=== PATIENT | male | born 1995 | race Caucasian/White ===

== ENCOUNTER 2024-10-01 14:42 | Emergency (ER) | payer OTHER ==
[2024-10-01] MEDS ORDERED: KETOROLAC 30 MG/ML INJ ONE (15:28)
[2024-10-01 15:39] LABS: Absolute Lymphocytes (CBC) 1.2 K/uL (0.7-4.9); Absolute Monocytes 1.2 K/uL (0.1-1.3); Absolute Neutrophil 8.1 K/uL (1.8-8.0); Basophils % 0.3 % (0-1.3); Eosinophils % 0.1 % (0-4.4); Hematocrit 39.6 % (39.6-49.0); Hemoglobin 13.5 g/dL (13.6-17.9); Lymphocytes % 11.4 % (15.3-44.8); MCH 30.8 pg (27.0-35.0); MCV 90.7 fL (80-100); MPV 6.7 fL (7.6-11.3); Monocytes % 11.2 % (3.3-12.3); Platelets 309 thou/uL (152-406); RBC Red Blood Cell Count 4.36 M/uL (4.33-5.43); Red Cell Distribution Width 12.9 % (12.1-15.2)
[2024-10-01 15:43] LABS: PT Prothrombin Time 12.7 SECONDS (9.4-12.5); Protime INR 1.21
--- NOTE | 2024-10-01 15:54 | RAD REPORT ---
EXAM: Chest Single View HISTORY: CHEST PAIN COMPARISON: 06/11/2008 FINDINGS: LUNGS/PLEURA: The lungs are clear. No pleural effusions or pneumothorax. No pulmonary edema. MEDIASTINUM: The mediastinal silhouette is within normal limits. CARDIAC: Cardiac silhouette accentuated by portable technique and low lung volumes. UPPER ABDOMEN: No significant abnormality. BONES: No acute abnormality. LINES/TUBES/OTHER: N/A IMPRESSION: No evidence of acute cardiopulmonary disease.
[2024-10-01 15:59] LABS: Albumin 3.5 g/dL (3.4-5.0); Albumin/Globulin Ratio 0.9 (1.1-1.8); Anion Gap 11.3 mEq/L (5.0-15.0); Bilirubin Direct 0.3 mg/dL (0-0.2); Bilirubin Total 1.3 mg/dL (0.2-1.0); Globulin 3.7 g/dL (2.3-3.5); Magnesium 2.1 mg/dL (1.6-2.4); Potassium 3.3 mEq/L (3.5-5.1); Protein, Total 7.2 g/dL (6.4-8.2); Troponin High Sensitivity 3.5 pg/mL (<58.9)
--- NOTE | 2024-10-01 17:18 | RAD REPORT ---
Abdomen Exam Limited: 10/01/2024 4:50 PM CLINICAL HISTORY: elevated bilirubin STUDY: Limited right upper quadrant ultrasound of abdomen. COMPARISON: None. FINDINGS: Liver: Hepatic steatosis. Bile ducts: No intrahepatic or extrahepatic biliary ductal dilatation. Common bile duct measures 3 mm. Gallbladder: The gallbladder is underdistended. No gallbladder wall thickening. Negative for cholelit hiasis. No sonographic Alvarez sign. IMPRESSION: No acute cholecystitis, biliary duct dilatation, or cholelithiasis. Hepatic steatosis.
[2024-10-01] MEDS ORDERED: NA CHLORIDE 0.9% 1,000 ML ONE (17:35)
--- NOTE | 2024-10-01 18:20 | ER ---
Nurse's Notes [facility] Name: Domingo Zhao Age: 29 yrs Sex: Male : 1995 Arrival Date: 10/01/2024 Time: 14:42 Bed 14 Private MD: Diagnosis: Chest pain, unspecified Presentation: 10/01 14:47 Chief complaint: Patient states: CHEST PAIN AND COUGH SINCE LAST PM. Coronavirus bp screen: At this time, the client does not indicate any symptoms associated with coronavirus-19. Ebola Screen: No symptoms or risks identified at this time. Initial Sepsis Screen: Does the patient meet any 2 criteria? No. Patient's initial sepsis screen is negative. Does the patient have a suspected source of infection? No. Patient's initial sepsis screen is negative. Risk Assessment: Do you want to hurt yourself or someone else? Patient reports no desire to harm self or others. Onset of symptoms was September 30, 2024 at 21:00. 14:47 Method Of Arrival: Ambulatory bp 14:47 Acuity: BERYL 3 bp Triage Assessment: 14:49 General: Appears in no apparent distress. Behavior is calm, cooperative. Pain: bp Complains of pain in chest. EENT: No deficits noted. Neuro: No deficits noted. Cardiovascular: Reports chest pain. Respiratory: No deficits noted. GI: No signs and/or symptoms were reported involving the gastrointestinal system. : No signs and/or symptoms were reported regarding the genitourinary system. Derm: No deficits noted. Musculoskeletal: No deficits noted. Historical: - Allergies: 14:49 No Known Allergies; bp - Home Meds: 14:49 Prozac Oral [Active]; Wellbutrin Oral [Active]; bp - Immunization history:: Adult Immunizations up to date. - Infectious Disease History:: Denies. - Social history:: Smoking status: Patient denies any tobacco usage or history of. Screenin:46 [facility] ED Fall Risk Assessment (Adult) History of falling in the last 3 months, ph including since admission No falls in past 3 months (0 pts) Confusion or Disorientation No (0 pts) Intoxicated or Sedated No (0 pts) Impaired Gait No (0 pts) Mobility Assist Device Used No (0 pt) Altered Elimination No (0 pt) Score/Fall Risk Level 0 - 2 = Low Risk Oriented to surroundings, Maintained a safe environment, Hourly rounding (assess needs \T\ fall precautionary measures) done. Abuse screen: Denies threats or abuse. Denies injuries from another. Nutritional screening: No deficits noted. Tuberculosis screening: No symptoms or risk factors identified. Assessment: 17:45 General: Appears in no apparent distress. comfortable, well groomed, Behavior is calm, ph cooperative, appropriate for age. Pain: Complains of pain in anterior aspect of left upper chest and left breast, denies pain at this time Pain does not radiate. Vital Signs: 14:47 BP 111 / 74; Pulse 116; Resp 16; Temp 97.5; Pulse Ox 100% ; bp 17:44 BP 115 / 70; Pulse 98; Resp 18; Temp 98; Pulse Ox 99% on R/A; ph 18:34 BP 112 / 72; Pulse 87; Resp 18; Temp 97.9; Pulse Ox 98% on R/A; ph ED Course: 14:43 Patient arrived in ED. ra3 14:47 Bill Gudino PA is PHCP. cp 14:47 Bill Romero MD is Attending Physician. cp 14:49 Triage completed. bp 14:51 Arm band placed on. bp 15:32 Basic Metabolic Panel Sent. em1 15:32 CBC with Diff Sent. em1 15:32 LFT's Sent. em1 15:32 Magnesium Sent. em1 15:32 NT PRO-BNP Sent. em1 15:32 PT-INR Sent. em1 15:32 Troponin HS Sent. em1 15:32 Initial lab(s) drawn, by me, sent to lab. EKG done, by ED staff, reviewed by Bill CAMPBELL. Inserted saline lock: 22 gauge in right forearm, using aseptic technique. Blood collected. Flushed with 10 mL NS. 15:52 XRAY Chest (1 view) In Process Unspecified. EDMS 17:13 US Abdomen Limited: gallbladder In Process Unspecified. EDMS 17:28 Barbara Morrison, RN is Primary Nurse. ph 17:44 Troponin High Sensitivity Sent. ph 17:44 No provider procedures requiring assistance completed. Repeat lab(s) drawn. by me, sent ph to lab. Patient maintains SpO2 saturation greater than 95% on room air. 17:46 Patient has correct armband on for positive identification. Bed in low position. Call ph light in reach. Side rails up X 1. Pulse ox on. NIBP on. Door closed. Noise minimized. 18:34 IV discontinued, intact, bleeding controlled, No redness/swelling at site. Pressure ph dressing applied. Administered Medications: 15:33 Drug: Ketorolac IVP 15 mg IVP once Route: IVP; Site: right forearm; ap3 17:44 Follow up: Response: No adverse reaction ph 17:44 Drug: NS 0.9% IV 1000 ml IV at 1 bolus Per protocol; to be given as a bolus over 60 ph minutes Route: IV; Rate: 1 bolus; Site: right forearm; 18:34 Follow up: Response: No adverse reaction; IV Status: Completed infusion; IV Intake: ph 1000ml Medication: 17:46 VIS not applicable for this client. ph Intake: 18:34 IV: 1000ml; Total: 1000ml. ph Outcome: 18:20 Discharge ordered by MD. cp 18:33 Discharged to home ambulatory, with family, ph 18:33 Condition: good 18:33 Discharge instructions given to family, Instructed on discharge instructions, follow up and referral plans. medication usage, Demonstrated understanding of instructions, follow-up care, medications, Prescriptions given X 1, 18:34 Patient left the ED. ph Signatures: Dispatcher [employer] EDMS Christofer Colon em1 Barbara Morrison RN RN ph Bill Gudino PA PA cp Peltier, Brian RN RN Laurie Lloyd RN RN ap3 Rema, Sophia [email or web address] Corrections: (The following items were deleted from the chart) 17:44 17:44 NS 0.9% IV 1000 ml IV at 1 bolus in right antecubital ph ph
--- NOTE | 2024-10-01 18:21 | EDPHYS ---
Physician Documentation [facility] Name: Domingo Zhao Age: 29 yrs Sex: Male : 1995 Arrival Date: 10/01/2024 Time: 14:42 Bed 14 Private MD: ED Physician Bill Romero HPI: 10/01 15:10 This 29 yrs old Male presents to ER via Ambulatory with complaints of Chest Pain. cp 15:10 The patient or guardian reports chest pain that is located primarily in the anterior cp chest wall, left. The pain radiates to back. Associated signs and symptoms: Pertinent positives: cough, Pertinent negatives: abdominal pain, diaphoresis, lower extremity pain, lower extremity swelling, shortness of breath, vomiting. The chest pain is described as constant. Duration: The patient or guardian reports a single episode, that is still ongoing, and worsening, started last night. Historical: - Allergies: 14:49 No Known Allergies; bp - Home Meds: 14:49 Prozac Oral [Active]; Wellbutrin Oral [Active]; bp - Immunization history:: Adult Immunizations up to date. - Infectious Disease History:: Denies. - Social history:: Smoking status: Patient denies any tobacco usage or history of. ROS: 15:15 Constitutional: Negative for chills, fever, poor PO intake, cp 15:15 Eyes: Negative for injury, pain, redness, and discharge, cp 15:15 ENT: Negative for drainage from ear(s), ear pain, sore throat, difficulty swallowing, difficulty handling secretions, 15:15 Cardiovascular: Positive for chest pain, Negative for edema, palpitations, 15:15 Respiratory: Positive for cough, with no reported sputum, Negative for wheezing, 15:15 Abdomen/GI: Negative for abdominal pain, vomiting, diarrhea, constipation, 15:15 Back: Positive for radiated pain, cp 15:15 Neuro: Negative for altered mental status, dizziness, headache, loss of consciousness, cp syncope, weakness, 15:15 All other systems are negative, Exam: 15:07 ECG was reviewed by the Attending Physician. cp 15:20 Constitutional: The patient appears in no acute distress, alert, awake, cp non-diaphoretic, non-toxic, well developed, well nourished, obese, 15:20 Head/Face: Normocephalic, atraumatic. 15:20 Eyes: Periorbital structures: appear normal, Conjunctiva: normal, no exudate, no injection, Sclera: no appreciated abnormality, Lids and lashes: appear normal, bilaterally, 15:20 ENT: External ear(s): are unremarkable, Nose: is normal, Mouth: Lips: moist, Oral mucosa: moist, Posterior pharynx: Airway: no evidence of obstruction, patent, 15:20 Chest/axilla: Inspection: normal, Palpation: crepitus, is not appreciated, tenderness, that is mild, of the left clavicle, anterior aspect of left upper chest and mid-sternal area, 15:20 Cardiovascular: Rate: tachycardic, Rhythm: regular, Edema: is not appreciated, JVD: is not appreciated, 15:20 Respiratory: the patient does not display signs of respiratory distress, Respirations: normal, no use of accessory muscles, no retractions, labored breathing, is not present, Breath sounds: are clear throughout, no decreased breath sounds, no stridor, no wheezing, 15:20 Abdomen/GI: Inspection: abdomen appears normal, Bowel sounds: active, all quadrants, Palpation: abdomen is soft and non-tender, in all quadrants, Vital Signs: 14:47 BP 111 / 74; Pulse 116; Resp 16; Temp 97.5; Pulse Ox 100% ; bp 17:44 BP 115 / 70; Pulse 98; Resp 18; Temp 98; Pulse Ox 99% on R/A; ph 18:34 BP 112 / 72; Pulse 87; Resp 18; Temp 97.9; Pulse Ox 98% on R/A; ph MDM: 14:47 Medical Screening Exam initiated cp 16:00 Differential diagnosis: abnormal EKG, acute myocardial infarction, acute pericarditis, cp anxiety, cholecystitis, Cholelithiasis pericarditis, pleurisy, pneumonia, pneumothorax, pulmonary embolus. 18:20 Data reviewed: vital signs, nurses notes, lab test result(s), EKG, radiologic studies, cp plain films. 18:20 I considered the following discharge prescriptions or medication management in the emergency department Medications were administered in the Emergency Department. See MAR. 18:20 Counseling: I had a detailed discussion with the patient and/or guardian regarding the historical points, exam findings, and any diagnostic results supporting the discharge/admit diagnosis, lab results, radiology results. 18:20 Historians other than the Patient: Parent: mother provides hpi. Response to treatment: cp the patient's symptoms have mildly improved after treatment, and as a result, I will discharge patient. Special discussion: Based on the patient's history, exam, and Dx evaluation, there is no indication for emergent intervention or inpatient Tx. It is understood by the patient/guardian that if the Sx's persist or worsen they need to return immediately for re-evaluation. 10/01 15:09 Order name: Basic Metabolic Panel; Complete Time: 16:34 cp 10/01 16:34 Interpretation: Normal except: K 3.3; GFR 87. cp 10/01 15:09 Order name: CBC with Diff; Complete Time: 16:34 cp 10/01 16:35 Interpretation: Normal except: HGB 13.5; MPV 6.7; PILAR% 77.0; LYM% 11.4; NEUT A 8.1. cp 10/01 15:09 Order name: LFT's; Complete Time: 16:34 cp 10/01 16:35 Interpretation: Normal except: BILIT 1.3; BILID 0.3; IBILI, CALC 1.0; GLOB 3.7; A/G 0.9.cp 10/01 15:09 Order name: Magnesium; Complete Time: 16:34 cp 10/01 15:09 Order name: NT PRO-BNP; Complete Time: 16:34 cp 10/01 15:09 Order name: PT-INR; Complete Time: 16:34 cp 10/01 15:09 Order name: Troponin HS; Complete Time: 16:34 cp 10/01 17:06 Order name: Troponin High Sensitivity; Complete Time: 18:20 cp 10/01 15:09 Order name: XRAY Chest (1 view); Complete Time: 16:34 cp 10/01 16:36 Order name: US Abdomen Limited: gallbladder; Complete Time: 17:21 cp 10/01 17:21 Interpretation: Report reviewed. 10/01 15:09 Order name: EKG - Nurse/Tech; Complete Time: 15:21 cp 10/01 15:09 Order name: IV Saline Lock; Complete Time: 15:32 cp 10/01 15:09 Order name: Labs collected and sent; Complete Time: 15:32 cp 10/01 15:09 Order name: O2 Per Protocol; Complete Time: 15:21 cp 10/01 15:09 Order name: O2 Sat Monitoring; Complete Time: 15:21 cp EC:07 Rate is 110 beats/min. Rhythm is regular. LA interval is normal. QRS interval is cp prolonged at 102 msec. QT interval is normal. T waves are Inverted in lead aVR. Interpreted by me. Reviewed by me. Administered Medications: 15:33 Drug: Ketorolac IVP 15 mg IVP once Route: IVP; Site: right forearm; ap3 17:44 Follow up: Response: No adverse reaction ph 17:44 Drug: NS 0.9% IV 1000 ml IV at 1 bolus Per protocol; to be given as a bolus over 60 ph minutes Route: IV; Rate: 1 bolus; Site: right forearm; 18:34 Follow up: Response: No adverse reaction; IV Status: Completed infusion; IV Intake: ph 1000ml Disposition Summary: 10/01/24 18:20 Discharge Ordered Notes: Location: Home cp Problem: new cp Symptoms: have improved cp Condition: Stable cp Diagnosis - Chest pain, unspecified cp Followup: cp - With: Private Physician - When: 2 - 3 days - Reason: Recheck today's complaints Discharge Instructions: - Discharge Summary Sheet cp - Nonspecific Chest Pain, Adult cp Forms: - Medication Reconciliation Form cp - Antibiotic Education cp - Prescription Opioid Use cp - Patient Portal Instructions cp - Leadership Thank You Letter cp Prescriptions: - Anaprox DS 550 mg Oral Tablet - take 1 tablet ORAL route every 12 hours As needed; 20 tablet; Refills: 0, cp Product Selection Permitted Addendum: 10/05/2024 07:27 Co-signature as Attending Physician, Bill Romero MD I agree with the assessment and c michael plan of care. Signatures: Dispatcher [employer] Bill Robbins MD MD cha Hall, Patricia RN RN Bill Miller PA PA cp Peltier, Brian, RN RN Laurie Lloyd RN RN ap3 Corrections: (The following items were deleted from the chart) 10/01 15:09 15:09 BASIC METABOLIC PANEL+C.LAB.BRZ ordered. EDMS EDMS 15:09 15:09 CBC+H.LAB.BRZ ordered. EDMS EDMS 15:09 15:09 HEPATIC FUNCTION+C.LAB.BRZ ordered. EDMS EDMS 15: 15:09 MAGNESIUM+C.LAB.BRZ ordered. EDMS EDMS 15: 15:09 PROBNP+C.LAB.BRZ ordered. EDMS EDMS 15: 15:09 PROTIME (+INR)+COAG.LAB.BRZ ordered. EDMS EDMS 15: 15:09 Troponin High Sensitivity+C.LAB.BRZ ordered. EDMS EDMS 15: 15:09 Urinalysis W/Microscopic+U.LAB.BRZ ordered. EDMS EDMS 15: 15:09 URINE DRUG SCREEN+UC.LAB.BRZ ordered. EDMS EDMS 15: 15:09 Chest Single View+RAD.RAD.BRZ ordered. EDMS EDMS
[2024-10-01 19:09] VITALS: BP 112/72; TEMP 97.9; O2SAT 98
== END 2024-10-01 18:34 | disposition home or self-care (01) ==
LOC: ER 14:42
DX: R07.9 Chest pain, unspecified (principal)
CPT/HCPCS: 96361; 85025; 80048; 36415; 83735; 85610; 80076; 84484 ×2; 83880; 71045; 76705; 96374; 99284; J7030